=== PATIENT | female | born 1950 | race Caucasian/White ===

== ENCOUNTER → 2017-01-04 | Outpatient (CLI) | payer OTHER | LOC: CIMAGING 14:02 | PROVIDERS: ATTEND Family Medicine | DX: Z12.31 Encounter for screening mammogram for malignant neoplasm of breast (principal) | CPT/HCPCS: G0202 ==

== ENCOUNTER → 2017-11-16 | Outpatient (CLI) | payer OTHER | LOC: BHFA 15:00 | PROVIDERS: ATTEND Internal Medicine Cardiovascular Disease | DX: R07.9 Chest pain, unspecified (principal) ==

== ENCOUNTER → 2018-03-25 | Outpatient (CLI) | payer OTHER | LOC: CIMAGING 14:01 | PROVIDERS: ATTEND Family Medicine | DX: Z12.31 Encounter for screening mammogram for malignant neoplasm of breast (principal) ==

== ENCOUNTER 2018-04-12 07:59 | Day surgery (SDC) | payer OTHER ==
[2018-04-12] MEDS ORDERED: ASPIRIN EC 325 MG TAB PO ONE ×2 (08:01→08:27)
[2018-04-12] MEDS ORDERED: NS 1,000 ML IV ONE (08:01)
[2018-04-12] MEDS ORDERED: FAMOTIDINE 20 MG TAB PO ONE (08:01)
[2018-04-12] MEDS ORDERED: diphenhydrAMINE 25 MG CAP PO ONE ×2 (08:01→08:27)
[2018-04-12] MEDS ORDERED: DIAZEPAM 5 MG TAB PO ONE (08:01)
[2018-04-12] MEDS ORDERED: FAMOTIDINE 20 MG TAB ONE (08:27)
[2018-04-12] MEDS ORDERED: DIAZEPAM 5 MG TAB ONE (08:28)
[2018-04-12 08:41] LABS: PLATELET COUNT 269 10^3/uL (150-400)
[2018-04-12 08:49] LABS: INR 1.03 (0.83-1.16); PROTIME(PATIENT) 13.7 SEC (12.0-15.0)
[2018-04-12] MEDS ORDERED: fentaNYL 100 MCG/2 ML INJ ONE (08:53)
[2018-04-12] MEDS ORDERED: LIDOCAINE 1% 300 MG/30 ML SDV ONE (08:53)
[2018-04-12] MEDS ORDERED: MIDAZOLAM 2 MG/2 ML VIAL ONE (08:54)
[2018-04-12] MEDS ORDERED: IOPAMIDOL (ISOVUE-370) 150 ML BTL IV ONE (08:54)
--- NOTE | 2018-04-12 09:09 | PDHPUP ---
History & Physical Update H&P update statement: This history and physical update is based on an assessment of the patient which was completed after admission or registration (within 24 hours), but prior to the surgery/procedure. H&P update: H&P reviewed & patient examined, no change in patient's condition since H&P completed
--- NOTE | 2018-04-12 09:09 | PDPROPOC ---
Sedation Plan of Care Sedation Plan of Care: vital signs stable, mental status noted, patient educated of risks, benefits, alternatives, patient can tolerate sedation ASA Classification: ASA 2 Planned drugs: midazolam Mallampati Score: Class 2 Mallampati Reference Image: Patient passed 3-3-2 rule?: Yes
[2018-04-12] MEDS ORDERED: ONDANSETRON 4 MG/2 ML VIAL IVP PRN (10:09)
[2018-04-12] MEDS ORDERED: ATROPINE SULFATE 1 MG/10 ML SYR IVP PRN (10:09)
[2018-04-12] MEDS ORDERED: NITROGLYCERIN 0.4 MG BTL SL PRN (10:09)
--- NOTE | 2018-04-12 11:00 | CPIP ---
DATE OF PROCEDURE: 04/12/2018 PROCEDURE: 1. Coronary angiography. 2. Left ventriculography. INDICATION: 1. Chest pain syndrome concerning for anginal equivalent. 2. Abnormal exercise tolerance test that is intermediate risk. ACCESS: Patient was prepped and draped in sterile fashion. 1% lidocaine was used to anesthetize the right inguinal region. A 6-[place] introducer sheath was placed selectively into the right common fe moral artery via modified Seldinger technique. CORONARY ANGIOGRAPHY: A 6-[place] JL4 was advanced to the left main coronary artery and images obtain ed. The left main coronary artery trifurcated into an LAD, ramus, and circumflex coronary arteries. The left main coronary artery appeared normal. The left anterior descending coronary artery gave ri se to 1 prominent diagonal branch, as well as 1 smaller diagonal branch. The left anterior descendin g coronary artery and its complement of diagonal branches appeared normal. The ramus coronary artery was a small vessel. The ramus coronary artery appeared normal. The circumflex coronary artery is a large vessel. The circumflex coronary artery is nondominant. Circumflex coronary artery gave rise to a single large branching OM artery. The circumflex coronary artery and its OM artery appeared nor mal. A 6-[place] JR4 was advanced to the right coronary artery and images obtained. The right quintanilla ry artery was dominant. The right coronary artery appeared normal. LEFT VENTRICULOGRAPHY: A 6-[place] pigtail catheter was advanced in the left ventricle and images obt ained. Left ventricle is normal size, had normal systolic function. The estimated ejection fraction was 65%. The left ventricular end-diastolic pressure was 15 mmHg. COMPLICATIONS: None. CONCLUSIONS: 1. Normal coronary arteries. 2. Normal left ventricular size and systolic function. /[id number]/MODL
--- NOTE | 2018-04-13 22:39 | CPEKG ---
Test Reason : OPEN Blood Pressure : / mmHG Vent. Rate : 067 BPM Atrial Rate : 066 BPM P-R Int : 160 ms QRS Dur : 092 ms QT Int : 453 ms P-R-T Axes : 081 040 054 degrees QTc Int : 479 ms Incomplete analysis due to missing data in precordial lead(s) Sinus rhythm Consider left ventricular hypertrophy Nonspecific ST and T wave abnormality Missing lead(s): V6 Confirmed by Ronny Mojica ([id number]) on 04/13/2018 10:38:45 PM Referred By: Confirmed By:Ronny Mojica
== END 2018-04-12 13:24 | disposition home or self-care (01) ==
LOC: FCATH 07:59
PROVIDERS: ATTEND Internal Medicine Cardiovascular Disease
PROC: 4A023N7 Measurement of Cardiac Sampling and Pressure, Left Heart, Percutaneous Approach (ICD-10-PCS; principal; 2018-04-12)
PROC: B2151ZZ Fluoroscopy of Left Heart using Low Osmolar Contrast (ICD-10-PCS; principal; 2018-04-12)
PROC: B2111ZZ Fluoroscopy of Multiple Coronary Arteries using Low Osmolar Contrast (ICD-10-PCS; principal; 2018-04-12)
DX: R07.89 Other chest pain (principal); R94.39 Abnormal result of other cardiovascular function study; E78.5 Hyperlipidemia, unspecified; R00.2 Palpitations
CPT/HCPCS: C1760; J1644; J2250; J3010; Q9967

== ENCOUNTER → 2018-08-19 | Outpatient (CLI) | payer OTHER | LOC: CIMAGING 15:46 | PROVIDERS: ATTEND Physician Assistant Medical | DX: J98.09 Other diseases of bronchus, not elsewhere classified (principal) | CPT/HCPCS: 71046-PO ==